=== PATIENT | male | born 1940 | race Caucasian/White ===

== ENCOUNTER 2024-05-30 19:13 | Observation (INO) | payer OTHER, SELFPAY ==
[2024-05-30] VITALS (51 sets, daily range): BP systolic 140–164; BP diastolic 65–88; PULSE 52–66; RESP 0–23; TEMP 36.8–37.5; O2SAT 92–96
--- NOTE | 2024-05-30 19:15 | RT.EKG_ITS ---
APPROVED REPORT Exam: Resting ECG Reason for Exam: Stroke? Patient Location: E HR:61 bpm ECG Measurements Heart Rate 61 AXIS IL 131 P 68 QRSd 90 QRS -40 QT 365 T 16 QTc 369 Conclusion Sinus rhythM 61 left axis no stemi
--- NOTE | 2024-05-30 19:30 | DI.CT_ITS ---
Exam(s) CT HEAD - STROKE PROTOCOL EXAM: CT HEAD - STROKE PROTOCOL CLINICAL HISTORY: ams. TECHNIQUE: Imaging Protocol: Axial computed tomography images with coronal and sagittal reformatted images were created and reviewed COMPARISON: No exams were available for comparison FINDINGS: Ventricles and Extra axial spaces: Normal in size and morphology for the patient's age. Hemorrhage: None. Cerebral parenchyma: No evidence of acute infarct or mass. Mild atrophy consistent with the patient 's age. Moderate patchy signal in the white matter consistent with changes chronic microvascular dis ease. 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 Midline shift: None. Brainstem/Cerebellum: Normal. Calvarium: Normal. Visualized Paranasal sinuses:Clear. Mastoids: Clear. Soft Tissues: Unremarkable. ORBITS: Unremarkable. PITUITARY: Partially empty sella. IMPRESSION: No acute intracranial process. RADIATION DOSE DELIVERED: 851.95mGy.cm Total DLP DATA REPOSITORY: All CT scans at this facility are submitted to the National Radiology Data Registry (NRDR) Dose Index Registry (DIR) with the [employer] ([employer]). RADIATION OPTIMIZATION: All CT scans at this facility use at least one of these dose optimization te chniques: automated exposure control; mA and/or kV adjustment per patient size (includes targeted exa ms where dose is matched to clinical indication); or iterative reconstruction.
--- NOTE | 2024-05-30 19:30 | DI.RAD_ITS ---
Exam(s) XR CHEST 1V IN DI DEPT EXAM: XR CHEST 1V IN DI DEPT CLINICAL HISTORY: ams TECHNIQUE: 2D digital imaging was performed. COMPARISON: No exams were available for comparison FINDINGS: LUNGS: Linear scarring or atelectasis left lower lung field. Mild fibrotic changes. No pleural abno rmality seen. HEART: Normal size. AORTA: Normal diameter. BONES: Unremarkable for age. Soft tissues: Unremarkable. IMPRESSION: Left lower lobe linear scarring or atelectasis. DATA REPOSITORY: RADIATION DOSE DELIVERED:
[2024-05-30 19:57] LABS: Abs Immature Grans 0.02 10^3/uL (0.0-0.06); Absolute Basophil Count 0.03 10^3/uL (0.0-0.2); Absolute Eosinophil Count 0.08 10^3/uL (0.0-0.7); Absolute Lymphocyte Count 1.43 10^3/uL (1.2-3.4); Absolute Neutrophil Count 7.31 10^3/uL (1.2-6.7); Basophils % 0.3 %; Eosinophils % 0.8 %; HCT 48.2 % (40.0-50.0); HGB 15.9 g/dL (13.5-17.5); Immature Grans % 0.2 %; Lymphocytes % 14.1 %; MCH 32.7 pg (27.0-33.0); MCV 99 fL (80-95); MPV 10.7 fL (8.0-11.0); Monocytes % 12.8 %; Neutrophils % 71.8 %; Platelet Count 184 10^3/uL (130-400); RBC 4.86 10^6/uL (4.36-5.78); RDW 12.2 % (11.8-14.1); RDW-SD 44.9 fL; WBC 10.17 10^3/uL (4.4-10.8)
--- NOTE | 2024-05-30 19:57 | DI.VRAD_ITS ---
PROCEDURE INFORMATION: Exam: CT Head Without Contrast Exam date and time: 05/30/2024 7:38 PM Age: 84 years old Clinical indication: Stroke-like symptoms; Altered mental status/memory loss; Additional info: AMS TECHNIQUE: Imaging protocol: Computed tomography of the head without contrast. Radiation optimization: All CT scans at this facility use at least one of these dose optimization techniques: automated exposure control; mA and/or kV adjustment per patient size (includes targeted exams where dose is matched to clinical indication); or iterative reconstruction. Other technique: STROKE PROTOCOL was implemented. COMPARISON: No relevant prior studies available. FINDINGS: Brain: Mild cerebral atrophy. Mild periventricular small-vessel ischemic changes. No acute hemorrhage. Cerebral ventricles: No ventriculomegaly. Paranasal sinuses: Visualized sinuses are unremarkable. No fluid levels. Mastoid air cells: Visualized mastoid air cells are well aerated. Bones: Unremarkable. No acute fracture. Soft tissues: Unremarkable. IMPRESSION: 1. No acute intracranial abnormalities. 2. Mild cerebral atrophy. ASSESSMENT: ASPECTS ([place] Stroke Program Early CT Score) is 10. Dictated and Authenticated by: Jacky Hansen MD. Orderin Marshall Bartlett MD
--- NOTE | 2024-05-30 19:57 | DI.VRAD_ITS ---
PROCEDURE INFORMATION: Exam: XR Chest Exam date and time: 05/30/2024 7:42 PM Age: 84 years old Clinical indication: Other: AMS TECHNIQUE: Imaging protocol: Radiologic exam of the chest. Views: 1 view. COMPARISON: No relevant prior studies available. FINDINGS: Lungs: Left lower lobe subsegmental atelectatic changes. Pleural spaces: Unremarkable. No pleural effusion. No pneumothorax. Heart/Mediastinum: Unremarkable. No cardiomegaly. Bones/joints: Unremarkable. IMPRESSION: Left lower lobe subsegmental atelectatic changes. Dictated and Authenticated by: Jacky Hansen MD. Orderin Marshall Bartlett MD
[2024-05-30 20:09] LABS: INR 1.1 (0.9-1.1); Prothrombin Time 11.3 sec (9.1-11.1)
[2024-05-30] MEDS: CEFEPIME 1 GM in Normal Saline 50 ML IVPB (20:13)
[2024-05-30 20:15] LABS: Ammonia < 10 umol/L (11-32)
[2024-05-30 20:56] LABS: ALT 10 U/L (16-63); AST 20 U/L (15-37); Albumin 3.8 g/dL (3.4-5.0); Alkaline Phosphatase 95 U/L (46-116); Anion Gap 4.7 mmol/L (3-11); BUN 17 mg/dL (7-18); Bilirubin, Total 1.5 mg/dL (0.2-1.0); CO2 33.3 mmol/L (21.0-32.0); CREATININE 1.2 mg/dL (0.70-1.30); Calcium 9.6 mg/dL (8.5-10.1); Chloride 100 mmol/L (98-107); Glucose 92 mg/dL (74-106); Magnesium 1.9 mg/dL; Potassium 3.4 mmol/L (3.5-5.1); Sodium 138 mmol/L (136-145); TSH (W/Ref FT4) 0.65 uIU/mL (0.36-3.74); Total Protein 7.4 g/dL (6.4-8.2); Troponin I 13 ng/L (<or=76)
[2024-05-30 20:57] LABS: ETHANOL BLOOD < 3.0 mg/dL (<10)
[2024-05-30 21:01] LABS: Troponin I 11 ng/L (<or=76)
[2024-05-30] MEDS: VANCOMYCIN 1,500 MG in Normal Saline 250 ML 166.6666 MG IVPB (21:03)
[2024-05-30 22:19] LABS: Bilirubin Negative (Negative); Blood Trace-intact (Negative); Clarity Clear (Clear); Glucose Negative (Negative); Ketones 15 mg/dL (Negative); Leukocyte Esterase Negative (Negative); Nitrite Negative (Negative); Urobilinogen 0.2 mg/dL (Up to 0.2)
[2024-05-30 22:28] LABS: Bacteria Rare HPF (Negative); C & S Indicated? No; Casts Negative LPF (Negative); Crystals Rare Calcium Oxalate HPF (Negative); Epithelial Cells Rare HPF (Negative); Mucus Moderate (Negative); WBC 0-2 HPF (0-5)
[2024-05-30 22:51] LABS: *AMPHETAMINES SCREEN URINE Negative (Negative); *BARBITURATES SCREEN URINE Negative (Negative); *BENZODIAZEPINES SCREEN URINE Negative (Negative); Cannabinoids THC Negative (Negative); Cocaine Screen,Urine Negative (Negative); METHADONE URINE SCREEN Negative (Negative); OPIATES URINE SCREEN Negative (Negative)
--- NOTE | 2024-05-30 22:51 | W.ED.GENAD ---
Discharge Plan Disposition Patient Disposition: Admit to [facility] Condition: Fair Discharge Details Chief Complaint: AMS/LOC Clinical Impression: Delirium Primary Care Provider: Unknown,Unknown ED Provider: Rodolfo Olivares Home Meds and New Rx's Prescriptions: No Action timolol [Betimol] 0.5 % drops 1 drp ophthalmic (eye) DAILY Rx Instructions: 1 drop to both eyes every morning carbidopa-levodopa 25-100 mg tablet 1 tab PO TID latanoprost [Xalatan] 0.005 % drops 1 drp ophthalmic (eye) QPM Rx Instructions: 1 drop to both eyes at bedtime zinc gluconate PO DAILY ferrous sulfate PO DAILY folic acid PO DAILY cyanocobalamin (vitamin B-12) PO DAILY PRN potassium chloride PO DAILY HPI General Date/Time Provider Initiated Documentation: 05/30/24 19:31. Limitations to Documentation: altered mental status. Information obtained by: family. HPI Narrative: 84-year-old gentleman with past medical history of Parkinson's disease presents for evaluation of altered mental status. reports onset of symptoms earlier today. She states that over the weekend he was hospitalized at [facility] for abdominal pain and vomiting. She states at that time he was being evaluated for possible gallbladder infection. She says that he had imaging and lab work and was determined to not have an acute infection and was discharged late last night. The reports that he came home from the hospital and went to sleep. She reports that he slept until about noon today and it required full assistance to get to the bathroom, he attempted to pee on the floor but she had to help him go to the bathroom. She reports that she normally does not have to help and assist him in this way. She returned him to bed and he continued to sleep for another several hours. She states that around 5:00 she went to wake him up and he seemed to be confused, his pants were down and he peed on the floor. She handed him some crackers and he tried to drink them instead of eat them. She states that he has had a diagnosis of Parkinson's for many years and never had any issues with dementia or altered mental status. He has never had any behavioral problems. He has not had any known fever or any additional vomiting since discharge Related Data Home Medications ?Medication ?Instructions ?Recorded ?Confirmed carbidopa 25 mg-levodopa 100 mg 1 tab PO TID 05/30/24 05/30/24 tablet cyanocobalamin (vitamin B-12) PO DAILY PRN 05/30/24 ferrous sulfate PO DAILY 05/30/24 folic acid PO DAILY 05/30/24 latanoprost 0.005 % eye drops 1 drp ophthalmic (eye) QPM 05/30/24 05/30/24 (Xalatan) potassium chloride PO DAILY 05/30/24 timolol 0.5 % eye drops (Betimol) 1 drp ophthalmic (eye) DAILY 05/30/24 05/30/24 zinc gluconate PO DAILY 05/30/24 Allergies Allergy/AdvReac Type Severity Reaction Status Date / Time No Known Allergies Allergy Unverified 05/30/24 19:28 General Stated Complaint: AMS/LOC EYAL: 2 Exam Narrative Exam Narrative: Review of Systems: All systems reviewed & are unremarkable except as noted in HPI and below Well-developed, no acute distress NCAT RRR no murmu Unlabored respiratory effort, CTAB Nondistended abdomen soft non tender no focal neurologic deficits, AOx3, slow responses, no focal deficits, cranial nerves intact flat affect, slow movements Course Vital Signs Vital signs: Vital Signs Temperature 37.5 C 05/30/24 19:17 Pulse 60 05/30/24 19:17 Respiratory Rate 18 05/30/24 19:17 Blood Pressure 157/82 H 05/30/24 19:17 Pulse Oximetry 95 05/30/24 19:17 Temperature 36.8 C 05/30/24 22:01 Temperature Source Oral 05/30/24 19:17 Pulse 57 L 05/30/24 22:01 Pulse 58 L 05/30/24 22:05 Respiratory Rate 11 L 05/30/24 22:05 Respiratory Effort Normal 05/30/24 19:23 Blood Pressure 159/83 H 05/30/24 22:01 Blood Pressure Mean 105 05/30/24 22:01 Pulse Oximetry 93 05/30/24 21:50 Oxygen Delivery Method Room Air 05/30/24 19:23 Pain Level 0 05/30/24 19:17 Lab/Test Results Lab/Test Results: 05/30/24 20:30 Blood Blood Culture - Pending 05/30/24 20:07 Blood Blood Culture - Pending Laboratory Tests Range/Units 05/30/24 05/30/24 05/30/24 18:57 19:31 20:36 WBC (4.4-10.8) 10^3/uL 10.17 RBC (4.36-5.78) 10^6/uL 4.86 Hgb (13.5-17.5) g/dL 15.9 Hct (40.0-50.0) % 48.2 MCV (80-95) fL 99 H MCH (27.0-33.0) pg 32.7 MCHC (32.0-36.0) % 33.0 RDW (11.8-14.1) % 12.2 Plt Count (130-400) 10^3/uL 184 MPV (8.0-11.0) fL 10.7 Immature Gran % % 0.2 Neutrophils % % 71.8 Lymphocytes % % 14.1 Monocytes % % 12.8 Eosinophils % % 0.8 Basophils % % 0.3 Nucleated RBC % (0.0-0.3) % 0.0 Absolute Neutrophils (1.2-6.7) 10^3/uL 7.31 H Absolute Lymphocytes (1.2-3.4) 10^3/uL 1.43 Absolute Monocytes (0.1-0.8) 10^3/uL 1.30 H Absolute Eosinophils (0.0-0.7) 10^3/uL 0.08 Absolute Basophils (0.0-0.2) 10^3/uL 0.03 PT (9.1-11.1) sec 11.3 H INR (0.9-1.1) 1.1 Sodium (136-145) mmol/L 138 Potassium (3.5-5.1) mmol/L 3.4 L Chloride (98-107) mmol/L 100 Carbon Dioxide (21.0-32.0) mmol/L 33.3 H Anion Gap (3-11) mmol/L 4.7 BUN (7-18) mg/dL 17 Creatinine (0.70-1.30) mg/dL 1.2 Est GFR (CKD-EPI 2020) (mL/min/1.73m2) 60.00 Glucose (74-106) mg/dL 92 Calcium (8.5-10.1) mg/dL 9.6 Magnesium mg/dL 1.9 Total Bilirubin (0.2-1.0) mg/dL 1.5 H AST (15-37) U/L 20 ALT (16-63) U/L 10 L Alkaline Phosphatase (46-116) U/L 95 Ammonia (11-32) umol/L < 10 L Troponin I (<or=76) ng/L 13 11 Total Protein (6.4-8.2) g/dL 7.4 Albumin (3.4-5.0) g/dL 3.8 TSH (0.36-3.74) uIU/mL 0.65 Urine Color (Yellow) Urine Clarity (Clear) Urine pH (5-8) Ur Specific [place] (1.005-1.025) Urine Protein (Neg-Trace) mg/dL Urine Ketones (Negative) mg/dL Urine Blood (Negative) Urine Nitrite (Negative) Urine Bilirubin (Negative) Urine Urobilinogen (Up to 0.2) mg/dL Ur Leukocyte Esterase (Negative) Urine RBC (0-2) HPF Urine WBC (0-5) HPF Ur Epithelial Cells (Negative) HPF Urine Crystals (Negative) HPF Urine Bacteria (Negative) HPF Urine Casts (Negative) LPF Urine Mucus (Negative) Ur Culture Indicated? Urine Glucose (Negative) mg/dL Ethyl Alcohol (<10) mg/dL < 3.0 Range/Units 05/30/24 05/30/24 22:05 22:31 WBC (4.4-10.8) 10^3/uL RBC (4.36-5.78) 10^6/uL Hgb (13.5-17.5) g/dL Hct (40.0-50.0) % MCV (80-95) fL MCH (27.0-33.0) pg MCHC (32.0-36.0) % RDW (11.8-14.1) % Plt Count (130-400) 10^3/uL MPV (8.0-11.0) fL Immature Gran % % Neutrophils % % Lymphocytes % % Monocytes % % Eosinophils % % Basophils % % Nucleated RBC % (0.0-0.3) % Absolute Neutrophils (1.2-6.7) 10^3/uL Absolute Lymphocytes (1.2-3.4) 10^3/uL Absolute Monocytes (0.1-0.8) 10^3/uL Absolute Eosinophils (0.0-0.7) 10^3/uL Absolute Basophils (0.0-0.2) 10^3/uL PT (9.1-11.1) sec INR (0.9-1.1) Sodium (136-145) mmol/L Potassium (3.5-5.1) mmol/L Chloride (98-107) mmol/L Carbon Dioxide (21.0-32.0) mmol/L Anion Gap (3-11) mmol/L BUN (7-18) mg/dL Creatinine (0.70-1.30) mg/dL Est GFR (CKD-EPI 2020) (mL/min/1.73m2) Glucose (74-106) mg/dL Calcium (8.5-10.1) mg/dL Magnesium mg/dL Total Bilirubin (0.2-1.0) mg/dL AST (15-37) U/L ALT (16-63) U/L Alkaline Phosphatase (46-116) U/L Ammonia (11-32) umol/L Troponin I (<or=76) ng/L Cancelled Total Protein (6.4-8.2) g/dL Albumin (3.4-5.0) g/dL TSH (0.36-3.74) uIU/mL Urine Color (Yellow) Yellow Urine Clarity (Clear) Clear Urine pH (5-8) 7.0 Ur Specific [place] (1.005-1.025) 1.020 Urine Protein (Neg-Trace) mg/dL Trace Urine Ketones (Negative) mg/dL 15 H Urine Blood (Negative) Trace-intact H Urine Nitrite (Negative) Negative Urine Bilirubin (Negative) Negative Urine Urobilinogen (Up to 0.2) mg/dL 0.2 Ur Leukocyte Esterase (Negative) Negative Urine RBC (0-2) HPF 3-5 H Urine WBC (0-5) HPF 0-2 Ur Epithelial Cells (Negative) HPF Rare Urine Crystals (Negative) HPF Rare Calcium Oxalate Urine Bacteria (Negative) HPF Rare Urine Casts (Negative) LPF Negative Urine Mucus (Negative) Moderate Ur Culture Indicated? No Urine Glucose (Negative) mg/dL Negative Ethyl Alcohol (<10) mg/dL Medical Decision Making Emergent evaluation of altered mental status. is unclear on last known normal since he was hospitalized and basically has been asleep since yesterday. Seems like he has been having some altered symptoms throughout the day without any focal neurologic deficit. He does have a history of Parkinson's, but has never had any behavioral issues or symptoms of parkinsonian dementia. On arrival his temperature was slightly elevated, and had a recent hospital stay concerning for vomiting and abdominal pain. He has no abdominal pain on examination today.. And I do not suspect a stroke as he has no acute neurologic deficits. CT imaging did not reveal any acute etiology. Chest x-ray was concerning for some abnormality in the left lower lobe, this could be atelectasis versus acute pneumonia, the patient was cultured and received broad-spectrum antibiotics. If he does have pneumonia, at this time he is not displaying symptoms or signs concerning for hypoxia. But he did have recent hospital stay which would put him at much higher risk. I suspect delirium that may likely have been exacerbated by his recent hospital stay and recent GI illness. At this time recommend hospitalization for further evaluation and monitoring. [facility]. Quality:SDOH Health Related Social Needs: No Data to Display PFSH All Active Problems (Updated 05/30/24 @ 23:03 by Rodolfo Olivares MD) Delirium (Acute) Social History Smoking/Tobacco Use Status: Never Smoking risk assessment performed?: Yes Alcohol Intake: never Substance use type: does not use
[2024-05-30 22:52] LABS: Tricyclic Antidepressants Negative (Negative)
--- NOTE | 2024-05-30 23:16 | W.PM.HP.N ---
Date of service: 05/30/24 Time of Service: 23:16 Assessment and Plan Assessment and plan (1) Delirium: Start date: 05/30/24 Status: Acute Assessment and plan: This is an 84-year-old gentleman who had acute delirium at home different than his baseline with chronic Parkinson disease. He has had a recent hospitalization for cholecystitis and was found to have cholelithiasis with contracted gallbladder. He is not having abdominal pain presently and was treated for constipation with a large stool burden found during that hospitalization. Because of his acute delirium being possible infectious delirium though he did not have a WBC elevation or fever, he was noted on IV antibiotic therapy. He has had a recent hospitalization and was a left lower lobe infiltrate this could be hospital-acquired if progressing. Because of his acute confusional state and Parkinson disease with gait abnormality worsening recently, patient will have MRI of the brain to follow-up with CT of the brain. CT of the brain did show atrophy but no focal infarcts. Also he will have an echocardiogram with bubble study. He is a full code. (2) Parkinson's disease: Status: Chronic Assessment and plan: Continue Sinemet. PT evaluation. (3) Hypokalemia: Status: Chronic Assessment and plan: Chronic with patient on oral potassium which will be continued. Trend labs. (4) Glaucoma: Status: Chronic Assessment and plan: Continue outpatient eyedrops. Patient will follow-up at the [facility] for this problem. (5) Cholelithiasis without cholecystitis: Start date: 05/29/24 Status: Acute Assessment and plan: [facility]. This does not appear to be an acute problem. (6) Constipation: Start date: 05/29/24 Status: Acute Assessment and plan: Continue cathartics to assure clearing of his colon which was causing some right abdominal pain. This has resolved. General surgery consultation for this problem as well as cholelithiasis through the [facility]. History of Present Illness History of Present Illness Chief Complaint: Acute confused state with behavior at home. Narrative: This is an 84-year-old male patient who usually goes to [facility] but was recently hospitalized at [facility] for acute cholecystitis with cholelithiasis found on CT with a contracted gallbladder. This was found on CT of the abdomen and pelvis and ultrasound did not show any pericholecystic fluid. General surgery thought that the patient could have outpatient general surgery consultation and his abdominal pain did improve after relief of some constipation with the burden of stool mostly on the right side of the colon. At home he slept for 12 hours and will awaken was more confused than usual trying to drink crackers rather than eating down and letting his pants down and urinating on the floor rather than going to the bathroom. His did try to guide him to the bathroom. He did not have any falls. He does have a history of Parkinson disease and has been using a walker intermittently but more recently. He has had problems with his gait recently. He has no history of dementia with his Parkinson's disease. He does not remember any imaging of his head. He reported to the ED because of this confusion and has slightly improved but persisted with mild dilution in the ED according to his not return to baseline. Imaging did reveal possible left lower lobe infiltrate the patient did not have any fever or elevated WBC. He did not have any cough. He was initiated on IV vancomycin and cefepime because of his acute change in mental status with being imaging of infiltrate. He was also recently in the hospital. Patient had no further information and I did review the discharge summary from [facility]. Patient will have imaging of his head in the morning with CT of the head showing atrophy but no focal findings because of his possible infectious encephalopathy associated with the delirium. Also he has been having advancing gait problems with his Parkinson disease. Echocardiogram with bubble study would also be performed. He is a full code. Review of Systems Narrative: 13 point review of systems otherwise unrevealing or unremarkable per with the ED physician interviewing. [facility] All Active Problems (Updated 05/31/24 @ 06:37 by Thuan Rodriguez) Constipation (Acute) Cholelithiasis without cholecystitis (Acute) Glaucoma (Chronic) Hypokalemia (Chronic) Parkinson's disease (Chronic) Delirium (Acute) Social History Smoking/Tobacco Use Status: Never Smoking risk assessment performed?: Yes Alcohol Intake: never Substance use type: does not use Meds Allergies and Home Medications Allergies Allergy/AdvReac Type Severity Reaction Status Date / Time No Known Allergies Allergy Unverified 05/30/24 19:28 Home Medications ?Medication ?Instructions ?Recorded ?Confirmed ?Type carbidopa 25 mg-levodopa 100 mg 1 tab PO TID 05/30/24 05/30/24 History tablet cyanocobalamin (vitamin B-12) PO DAILY PRN 05/30/24 History ferrous sulfate PO DAILY 05/30/24 History folic acid PO DAILY 05/30/24 History latanoprost 0.005 % eye drops 1 drp ophthalmic (eye) QPM 05/30/24 05/30/24 History (Xalatan) potassium chloride PO DAILY 05/30/24 History timolol 0.5 % eye drops (Betimol) 1 drp ophthalmic (eye) DAILY 05/30/24 05/30/24 History zinc gluconate PO DAILY 05/30/24 History Exam Narrative Exam Narrative: General: Patient appears appropriate for age, he is thin but not cachectic lying comfortably in bed in no acute distress. Is alert and oriented at least to person and place. HEENT: Normocephalic, eyes with pupils equal and reactive light symmetrically, extraocular movement intact and sclera anicteric. Oropharynx with dry mucosa and fair dentition. Neck: Supple without JVD and no auscultated bruits. Back: Stooped posture without CVA tenderness. Lungs: Fair aeration with fine to moderate inspiratory crackles both bases more in the left than right. No expiratory wheeze. Bronchovesicular breath sounds diffusely. Heart: Bradycardic rate with normal rhythm. No appreciable murmur or gallop. Abdomen: Scaphoid contour, soft and nontender to palpation with no palpable hepatosplenomegaly. No Garza sign. Bowel sounds positive all quadrants. Genitalia/rectal: Exam deferred. Extremities: Without clubbing, cyanosis or pitting edema. Slightly atrophic musculature over the extremities with fair capillary refill. No joint swelling. Neuro: Cranial nerves II to XII gross intact, no focalizing motor deficits. Increased tone but no cogwheel rigidity to exam. No resting tremor. Psych: Flattened affect with normal mood. Remote memory intact. Recent memory less intact so patient can admittedly answer questions. Results Imaging Imaging Studies: Exam: XR Chest Exam date and time: 05/30/2024 7:42 PM Age: 84 years old Clinical indication: Other: AMS TECHNIQUE: Imaging protocol: Radiologic exam of the chest. Views: 1 view. COMPARISON: No relevant prior studies available. FINDINGS: Lungs: Left lower lobe subsegmental atelectatic changes. Pleural spaces: Unremarkable. No pleural effusion. No pneumothorax. Heart/Mediastinum: Unremarkable. No cardiomegaly. Bones/joints: Unremarkable. IMPRESSION: Left lower lobe subsegmental atelectatic changes. Exam: CT Head Without Contrast Exam date and time: 05/30/2024 7:38 PM Age: 84 years old Clinical indication: Stroke-like symptoms; Altered mental status/memory loss; Additional info: AMS TECHNIQUE: Imaging protocol: Computed tomography of the head without contrast. Radiation optimization: All CT scans at this facility use at least one of these dose optimization techniques: automated exposure control; mA and/or kV adjustment per patient size (includes targeted exams where dose is matched to clinical indication); or iterative reconstruction. Other technique: STROKE PROTOCOL was implemented. COMPARISON: No relevant prior studies available. FINDINGS: Brain: Mild cerebral atrophy. Mild periventricular small-vessel ischemic changes. No acute hemorrhage. Cerebral ventricles: No ventriculomegaly. Paranasal sinuses: Visualized sinuses are unremarkable. No fluid levels. Mastoid air cells: Visualized mastoid air cells are well aerated. Bones: Unremarkable. No acute fracture. Soft tissues: Unremarkable. IMPRESSION: 1. No acute intracranial abnormalities. 2. Mild cerebral atrophy. Labs 05/31/24 05:25 05/31/24 05:25 Labs: Laboratory Results - last 24 hr 05/30/24 05/30/24 05/30/24 18:57 19:31 20:36 WBC 10.17 RBC 4.86 Hgb 15.9 Hct 48.2 MCV 99 H MCH 32.7 MCHC 33.0 RDW 12.2 Plt Count 184 MPV 10.7 Immature Gran % 0.2 Neutrophils % 71.8 Lymphocytes % 14.1 Monocytes % 12.8 Eosinophils % 0.8 Basophils % 0.3 Nucleated RBC % 0.0 Absolute Neutrophils 7.31 H Absolute Lymphocytes 1.43 Absolute Monocytes 1.30 H Absolute Eosinophils 0.08 Absolute Basophils 0.03 PT 11.3 H INR 1.1 Sodium 138 Potassium 3.4 L Chloride 100 Carbon Dioxide 33.3 H Anion Gap 4.7 BUN 17 Creatinine 1.2 Est GFR (CKD-EPI 2020) 60.00 Glucose 92 Calcium 9.6 Magnesium 1.9 Total Bilirubin 1.5 H AST 20 ALT 10 L Alkaline Phosphatase 95 Ammonia < 10 L Troponin I 13 11 Total Protein 7.4 Albumin 3.8 TSH 0.65 Urine Color Urine Clarity Urine pH Ur Specific [place] Urine Protein Urine Ketones Urine Blood Urine Nitrite Urine Bilirubin Urine Urobilinogen Ur Leukocyte Esterase Urine RBC Urine WBC Ur Epithelial Cells Urine Crystals Urine Bacteria Urine Casts Urine Mucus Ur Culture Indicated? Urine Glucose Urine Opiates Screen Urine Methadone Screen Ur Barbiturates Screen Ur Tricyclics Screen Ur Amphetamines Screen U Benzodiazepines Scrn Urine Cocaine Screen Ur THC Screen Ethyl Alcohol < 3.0 05/30/24 05/30/24 22:05 22:31 WBC RBC Hgb Hct MCV MCH MCHC RDW Plt Count MPV Immature Gran % Neutrophils % Lymphocytes % Monocytes % Eosinophils % Basophils % Nucleated RBC % Absolute Neutrophils Absolute Lymphocytes Absolute Monocytes Absolute Eosinophils Absolute Basophils PT INR Sodium Potassium Chloride Carbon Dioxide Anion Gap BUN Creatinine Est GFR (CKD-EPI 2020) Glucose Calcium Magnesium Total Bilirubin AST ALT Alkaline Phosphatase Ammonia Troponin I Cancelled Total Protein Albumin TSH Urine Color Yellow Urine Clarity Clear Urine pH 7.0 Ur Specific [place] 1.020 Urine Protein Trace Urine Ketones 15 H Urine Blood Trace-intact H Urine Nitrite Negative Urine Bilirubin Negative Urine Urobilinogen 0.2 Ur Leukocyte Esterase Negative Urine RBC 3-5 H Urine WBC 0-2 Ur Epithelial Cells Rare Urine Crystals Rare Calcium Oxalate Urine Bacteria Rare Urine Casts Negative Urine Mucus Moderate Ur Culture Indicated? No Urine Glucose Negative Urine Opiates Screen Negative Urine Methadone Screen Negative Ur Barbiturates Screen Negative Ur Tricyclics Screen Negative Ur Amphetamines Screen Negative U Benzodiazepines Scrn Negative Urine Cocaine Screen Negative Ur THC Screen Negative Ethyl Alcohol Last Vital Signs Temp 36.8 C 05/30/24 22:01 Pulse 55 L 05/30/24 23:01 Resp 10 L 05/30/24 23:01 BP 145/67 H 05/30/24 23:01 Pulse Ox 95 05/30/24 23:01 Time Spent Time spent with Patient: >75 minutes Time was spent: preparing to see the patient(eg.review tests), obtaining and/or reviewing separately otained hiistory, ordering medications,tests, procedures, indepentently interpreting results, care coordination and other (Reviewed recent hospitalization records.)
[2024-05-31] VITALS (43 sets, daily range): BP systolic 99–148; BP diastolic 64–88; PULSE 44–65; RESP 2–28; TEMP 36.4–37.7; O2SAT 89–98
[2024-05-31 00:29] LABS: COVID-19 PCR Negative (Negative); Influenza A PCR Negative (Negative); Influenza B PCR Negative (Negative); RSV PCR Negative (Negative)
[2024-05-31 00:33] LABS: Source Nasopharynx
--- NOTE | 2024-05-31 00:41 | W.PC.ACHO ---
Registration Status: Primary Language: Preferred Language: ED Information & Data Chief Complaint AMS/LOC 05/30/24 22:53 Triage Note PT has had weakness that 05/30/24 19:17 started this morning at 1230 . PT had some confusion also . PT thought his pants were down and urinated on himself . he was handed crackers and she tried to drink them. PT was DC from [facility] last night Most Recent Vital Signs Temperature 36.8 C 05/30/24 22:01 Temperature Source Oral 05/30/24 19:17 Pulse 56 L 05/31/24 00:16 Pulse 56 L 05/31/24 00:16 Respiratory Rate 13 05/31/24 00:16 Respiratory Effort Normal 05/30/24 19:23 Blood Pressure 130/86 05/31/24 00:16 Blood Pressure Mean 99 05/31/24 00:16 Pulse Oximetry 93 05/30/24 23:20 Oxygen Delivery Method Room Air 05/30/24 19:23 Pain Level 0 05/30/24 19:17 Allergies No Known Allergies Allergy (Unverified 05/30/24 19:28) IV IV Catheter Type [Right Saline Lock Antecubital] IV Catheter Gauge [Right 18 Antecubital] Diagnostics 05/30/24 05/30/24 05/30/24 Range/Units 23:47 22:31 22:05 WBC (4.4-10.8) 10^3/uL RBC (4.36-5.78) 10^6/uL Hgb (13.5-17.5) g/dL Hct (40.0-50.0) % MCV (80-95) fL MCH (27.0-33.0) pg MCHC (32.0-36.0) % RDW (11.8-14.1) % Plt Count (130-400) 10^3/uL MPV (8.0-11.0) fL Immature Gran % % Neutrophils % % Lymphocytes % % Monocytes % % Eosinophils % % Basophils % % Nucleated RBC % (0.0-0.3) % Absolute Neutrophils (1.2-6.7) 10^3/uL Absolute Lymphocytes (1.2-3.4) 10^3/uL Absolute Monocytes (0.1-0.8) 10^3/uL Absolute Eosinophils (0.0-0.7) 10^3/uL Absolute Basophils (0.0-0.2) 10^3/uL PT (9.1-11.1) sec INR (0.9-1.1) Sodium (136-145) mmol/L Potassium (3.5-5.1) mmol/L Chloride (98-107) mmol/L Carbon Dioxide (21.0-32.0) mmol/L Anion Gap (3-11) mmol/L BUN (7-18) mg/dL Creatinine (0.70-1.30) mg/dL Est GFR (CKD-EPI 2020) (mL/min/1.73m2) Glucose (74-106) mg/dL Calcium (8.5-10.1) mg/dL Magnesium mg/dL Total Bilirubin (0.2-1.0) mg/dL AST (15-37) U/L ALT (16-63) U/L Alkaline Phosphatase (46-116) U/L Ammonia (11-32) umol/L Troponin I Cancelled (<or=76) ng/L Total Protein (6.4-8.2) g/dL Albumin (3.4-5.0) g/dL TSH (0.36-3.74) uIU/mL Urine Color Yellow (Yellow) Urine Clarity Clear (Clear) Urine pH 7.0 (5-8) Ur Specific [place] 1.020 (1.005-1.025) Urine Protein Trace (Neg-Trace) mg/dL Urine Ketones 15 H (Negative) mg/dL Urine Blood Trace-intact H (Negative) Urine Nitrite Negative (Negative) Urine Bilirubin Negative (Negative) Urine Urobilinogen 0.2 (Up to 0.2) mg/dL Ur Leukocyte Esterase Negative (Negative) Urine RBC 3-5 H (0-2) HPF Urine WBC 0-2 (0-5) HPF Ur Epithelial Cells Rare (Negative) HPF Urine Crystals Rare Calcium Oxalate (Negative) HPF Urine Bacteria Rare (Negative) HPF Urine Casts Negative (Negative) LPF Urine Mucus Moderate (Negative) Ur Culture Indicated? No Urine Glucose Negative (Negative) mg/dL Urine Opiates Screen Negative (Negative) Urine Methadone Screen Negative (Negative) Ur Barbiturates Screen Negative (Negative) Ur Tricyclics Screen Negative (Negative) Ur Amphetamines Screen Negative (Negative) U Benzodiazepines Scrn Negative (Negative) Urine Cocaine Screen Negative (Negative) Ur THC Screen Negative (Negative) Ethyl Alcohol (<10) mg/dL COVID-19 Source Nasopharynx SARS-CoV-2 (PCR) Negative (Negative) Influenza Type A (PCR) Negative (Negative) Influenza Type B (PCR) Negative (Negative) RSV (PCR) Negative (Negative) 05/30/24 05/30/24 05/30/24 Range/Units 20:36 19:31 18:57 WBC 10.17 (4.4-10.8) 10^3/uL RBC 4.86 (4.36-5.78) 10^6/uL Hgb 15.9 (13.5-17.5) g/dL Hct 48.2 (40.0-50.0) % MCV 99 H (80-95) fL MCH 32.7 (27.0-33.0) pg MCHC 33.0 (32.0-36.0) % RDW 12.2 (11.8-14.1) % Plt Count 184 (130-400) 10^3/uL MPV 10.7 (8.0-11.0) fL Immature Gran % 0.2 % Neutrophils % 71.8 % Lymphocytes % 14.1 % Monocytes % 12.8 % Eosinophils % 0.8 % Basophils % 0.3 % Nucleated RBC % 0.0 (0.0-0.3) % Absolute Neutrophils 7.31 H (1.2-6.7) 10^3/uL Absolute Lymphocytes 1.43 (1.2-3.4) 10^3/uL Absolute Monocytes 1.30 H (0.1-0.8) 10^3/uL Absolute Eosinophils 0.08 (0.0-0.7) 10^3/uL Absolute Basophils 0.03 (0.0-0.2) 10^3/uL PT 11.3 H (9.1-11.1) sec INR 1.1 (0.9-1.1) Sodium 138 (136-145) mmol/L Potassium 3.4 L (3.5-5.1) mmol/L Chloride 100 (98-107) mmol/L Carbon Dioxide 33.3 H (21.0-32.0) mmol/L Anion Gap 4.7 (3-11) mmol/L BUN 17 (7-18) mg/dL Creatinine 1.2 (0.70-1.30) mg/dL Est GFR (CKD-EPI 2020) 60.00 (mL/min/1.73m2) Glucose 92 (74-106) mg/dL Calcium 9.6 (8.5-10.1) mg/dL Magnesium 1.9 mg/dL Total Bilirubin 1.5 H (0.2-1.0) mg/dL AST 20 (15-37) U/L ALT 10 L (16-63) U/L Alkaline Phosphatase 95 (46-116) U/L Ammonia < 10 L (11-32) umol/L Troponin I 11 13 (<or=76) ng/L Total Protein 7.4 (6.4-8.2) g/dL Albumin 3.8 (3.4-5.0) g/dL TSH 0.65 (0.36-3.74) uIU/mL Urine Color (Yellow) Urine Clarity (Clear) Urine pH (5-8) Ur Specific [place] (1.005-1.025) Urine Protein (Neg-Trace) mg/dL Urine Ketones (Negative) mg/dL Urine Blood (Negative) Urine Nitrite (Negative) Urine Bilirubin (Negative) Urine Urobilinogen (Up to 0.2) mg/dL Ur Leukocyte Esterase (Negative) Urine RBC (0-2) HPF Urine WBC (0-5) HPF Ur Epithelial Cells (Negative) HPF Urine Crystals (Negative) HPF Urine Bacteria (Negative) HPF Urine Casts (Negative) LPF Urine Mucus (Negative) Ur Culture Indicated? Urine Glucose (Negative) mg/dL Urine Opiates Screen (Negative) Urine Methadone Screen (Negative) Ur Barbiturates Screen (Negative) Ur Tricyclics Screen (Negative) Ur Amphetamines Screen (Negative) U Benzodiazepines Scrn (Negative) Urine Cocaine Screen (Negative) Ur THC Screen (Negative) Ethyl Alcohol < 3.0 (<10) mg/dL COVID-19 Source SARS-CoV-2 (PCR) (Negative) Influenza Type A (PCR) (Negative) Influenza Type B (PCR) (Negative) RSV (PCR) (Negative) 05/30/24 20:30 Blood Culture - Pending Blood 05/30/24 20:07 Blood Culture - Pending Blood Intake and Output - 24 Hour Total 05/30/24 19:13 thru 05/30/24 22:34 Intake Total 300 Balance 300 Weight 66.8 kg Intake: IV 300 Falls Risk Assessment History of Falls No History 05/30/24 19:23 Contributing Factors No Factors 05/30/24 19:23 Ambulatory Aids Uses ambulatory device 05/30/24 19:23 Tubes/Lines None 05/30/24 19:23 Gait Evaluation W/no contributing factors 05/30/24 19:23 Cognition Cognitive impairment 05/30/24 19:23 Fall Total Score 40 05/30/24 19:23 Level of Risk Moderate Risk 05/30/24 19:23 Problems (Last Reviewed 05/30/24 @ 23:17 by Thuan Rodriguez) Parkinson's disease (Chronic) Delirium (Acute) v v v v v v v v v Sending and/or Receiving Nurses: Please use comment section below to note any information pertinent to the patient hand-off not included above. Information / Comments: no questions after report Report received from: Luís VALDES
[2024-05-31] MEDS: Potassium Chloride 20 MEQ TABCR PO (02:24)
[2024-05-31] MEDS: Atorvastatin 40 MG TAB 80 MG PO ×2 (02:24→19:52)
[2024-05-31] MEDS: Aspirin 325 MG TAB PO (02:25)
[2024-05-31] MEDS: CEFEPIME 1 GM in Normal Saline 50 ML IVPB (03:53)
[2024-05-31] MEDS: Normal Saline Flush 10 ML SYR IVP ×3 (05:31→19:52)
[2024-05-31 05:41] LABS: HCT 43.4 % (40.0-50.0); HGB 14.4 g/dL (13.5-17.5); MCH 32.7 pg (27.0-33.0); MCHC 33.2 % (32.0-36.0); MCV 98 fL (80-95); MPV 10.3 fL (8.0-11.0); Platelet Count 155 10^3/uL (130-400); RBC 4.41 10^6/uL (4.36-5.78); RDW-SD 43.8 fL
[2024-05-31 06:05] LABS: INR 1.1 (0.9-1.1); Prothrombin Time 11.4 sec (9.1-11.1)
[2024-05-31 06:13] LABS: ALT 23 U/L (16-63); AST 19 U/L (15-37); Alkaline Phosphatase 78 U/L (46-116); Anion Gap 7.2 mmol/L (3-11); BUN 18 mg/dL (7-18); Bilirubin, Total 1.6 mg/dL (0.2-1.0); CO2 29.8 mmol/L (21.0-32.0); CREATININE 1.1 mg/dL (0.70-1.30); Calcium 8.7 mg/dL (8.5-10.1); Chloride 101 mmol/L (98-107); Estimated GFR 66.61 (mL/min/1.73m2); Glucose 94 mg/dL (74-106); Magnesium 1.8 mg/dL; Sodium 138 mmol/L (136-145); Total Protein 6.1 g/dL (6.4-8.2)
--- NOTE | 2024-05-31 08:00 | DI.MRI_ITS ---
Exam(s) MR BRAIN WO EXAM: MR BRAIN WO CLINICAL HISTORY: Acute Delerium with Parkinson's TECHNIQUE: Multiplanar multisequence MRI of the brain was performed. COMPARISON: CT CT HEAD - STROKE PROTOCOL from 05/30/2024 FINDINGS: There is artifact on the lower images secondary to a metallic density in the skin of the left side o f the face. VENTRICLES AND EXTRA AXIAL SPACES: Normal in size and morphology for the patient's age. MIDLINE SHIFT: None. CEREBRAL PARENCHYMA: No focus of restricted diffusion to suggest acute infarct. No space-occupying le jose raul identified. Mild to moderate atrophy consistent with the patient's age. Mild to moderate scatte red foci of high signal in the white matter consistent with sequela of chronic microvascular disease. BRAINSTEM/CEREBELLUM: Obscured on some sequences due to metallic artifact. VISUALIZED PARANASAL SINUSES: Mild mucosal thickening at the floors of the maxillary sinuses. MASTOIDS:Clear. Vasculature: Normal flow void. PITUITARY GLAND: Unremarkable. ORBITS: Unremarkable. IMPRESSION: No evidence of acute infarct or hemorrhage. DATA REPOSITORY:
--- NOTE | 2024-05-31 08:26 | PDOC.CMIN ---
Date of service: 05/31/24 Time of Service: 08:27 Care Management Initial Assmt Initial Assessment Reason for Hospitalization: Pneumonia and delirium Functional Status/Living Situation Patient Presentation: Sam was sitting up in bed visiting with Haresh, a gentleman from his orthodoxy, when CM met with him. He appeared to be in good spirits and joked with CM during the conversation. Sam does carry a diagnosis of dementia and there were times in the conversation where it seemed possible his information may not have been totally accurate. Sam lives in [place], [place] with his Kalyani and his castle lornaiel Kristy. He spoke highly of his dog, noting how sweet tempered she is and how close they are. He has one son who lives on [place] which is where Sam originally came from. He shared that he has been in [place] about 40 years. He also had a daughter but she passed. Sam was in the [employer] and was injured during his time in the service. He is [facility] connected and receives his healthcare at the [place] in [facility]. Sam stated that he is still working but it was not clear if that was a serious response. 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 Sam prides himself on being very strong and independent and only requires the use of a cane for ambulation. Town of Residence: [place] Resides with: Spouse (Kalyani) Natural Supports: and orthodoxy members Employment Status: Employed ([employer]) Instrumental Activities of Daily Living (ADLs): Independent Medications Medication Management: No Issues/Barriers identified Physical Functioning/Mobility Assistive Device: cane Advance Directives Advance Directives: Do you have an Advance Directive: AD On File at [facility]: N 05/30/24 20:38 Date Asked 05/31/24 05/31/24 12:12 AD Date Reviewed COLST On File at [facility] COLST Date Scanned Code Status Resuscitation Status Full Code Portal Pt does not currently have a portal and education provided: No Portal Education: Other (not local) Insurance Coverage/Financial Issues Insurance: [facility] Care Team Visit Care Team Role Provider Type Sesar Ambrosio MD [facility] STAFF PHYSICIAN Unknown Unknown Primary Care Provider STAFF PHYSICIAN InPatient Bradly Lindquist Other Providers OTHER Rodolfo Olivares MD Emergency Provider [facility] STAFF PHYSICIAN Thuan Rodriguez Admit Provider NON-[facility] STAFF PHYSICIAN Attending Provider Discharge Potential Discharge Needs: PCP F/U Appt Anticipated Barriers to Discharge: None Identified Patient/Family Education Needs: Review discharge instructions, discuss Ask Me Three Transportation: Private vehicle Plan: Anticipate Don will return home, possibly with new outpatient PT, when medically cleared. He will follow up with his PCP and plan of care and transport with family. CM will follow and continue to support discharge planning efforts. Social Determinants of Health Screening Will the Patient Participate in the Screening?: Unable to obtain PFSH All Active Problems (Updated 05/31/24 @ 07:45 by Ester Briceno) Delirium (Acute) Constipation (Acute) Cholelithiasis without cholecystitis (Acute) Glaucoma (Chronic) Hypokalemia (Chronic) Parkinson's disease (Chronic) Social History (System 05/31/24 @ 07:45 by Ester Briceno) Smoking/Tobacco Use Status: Never Smoking risk assessment performed?: Yes Alcohol Intake: never Substance use type: does not use
[2024-05-31] MEDS: Aspirin 81 MG CHEW PO (09:22)
[2024-05-31] MEDS: Polyethylene Glycol 3350 17 GM PACKET PO (09:22)
[2024-05-31] MEDS: Docusate Sodium 100 MG CAP PO ×2 (09:22→19:52)
[2024-05-31] MEDS: Carbidopa 25/Levodopa 100 TAB PO ×3 (09:22→19:52)
[2024-05-31] MEDS: Enoxaparin 40 MG/0.4 ML SYR SC (09:23)
[2024-05-31] MEDS: Potassium Chloride 10 MEQ TABCR PO (09:23)
[2024-05-31 09:56] LABS: Vancomycin, Random 9.6 ug/mL
[2024-05-31] MEDS: Timolol 0.5% 5 ML BTL OP (10:41)
[2024-05-31] MEDS: CEFEPIME 2 GM in Normal Saline 100 ML IVPB ×2 (10:42→22:01)
--- NOTE | 2024-05-31 12:47 | DI.RAD_ITS ---
Exam(s) XR FACIAL BONES LIMITED EXAM: XR FACIAL BONES LIMITED CLINICAL HISTORY: metal in cheek? MRI pending. TECHNIQUE: 2D digital imaging was performed. COMPARISON: No exams were available for comparison FINDINGS: BONES: No evidence of fracture. Sinuses are Elva clear. Advanced degenerative changes in the cer vical spine. SOFT TISSUES: There is a radiopaque foreign body seen in the subcutaneous tissue of the left side of the mandible near the angle. There is a tiny metallic density seen the anterior aspect of the mandib le in the soft tissues. Tiny there is a tiny metallic density seen on the right side near the maxill a. IMPRESSION: Three metallic foreign bodies are identified in the face. DATA REPOSITORY: RADIATION DOSE DELIVERED:
--- NOTE | 2024-05-31 13:55 | W.PC.ACHO ---
Registration Status: Primary Language: Preferred Language: ED Information & Data Chief Complaint AMS/LOC 05/30/24 22:53 Triage Note PT has had weakness that 05/30/24 19:17 started this morning at 1230 . PT had some confusion also . PT thought his pants were down and urinated on himself . he was handed crackers and she tried to drink them. PT was DC from [facility] last night Most Recent Vital Signs Temperature 36.7 C 05/31/24 09:37 Temperature Source Temporal Artery Scan 05/31/24 01:10 Pulse 44 L 05/31/24 12:02 Pulse 49 L 05/31/24 12:02 Respiratory Rate 17 05/31/24 12:02 Respiratory Effort Normal 05/31/24 01:10 Respiratory Depth Normal 05/31/24 01:10 Respiratory Pattern Normal 05/31/24 01:10 Blood Pressure 141/88 H 05/31/24 12:02 Blood Pressure Mean 106 05/31/24 12:02 Blood Pressure Position Supine 05/31/24 01:10 Pulse Oximetry 93 05/31/24 12:02 Oxygen Delivery Method Room Air 05/31/24 01:10 Oxygen Flow Rate 0 05/31/24 01:10 Pain Level 0 05/31/24 01:10 Allergies No Known Allergies Allergy (Unverified 05/31/24 07:45) Active Medications Generic Name Dose Route Start Last Admin Trade Name Freq PRN Reason Stop Dose Admin Aspirin 81 mg 05/31/24 08:30 05/31/24 09:22 Aspirin 81 Mg Chew PO 81 mg DAILY GEE Administration Carbidopa/Levodopa 1 tab 05/31/24 08:30 05/31/24 09:22 Carbidopa 25/Levodopa 100 Tab PO 1 tab TID GEE Administration Docusate Sodium 100 mg 05/31/24 00:51 05/31/24 09:22 Docusate Sodium 100 Mg Cap PO 100 mg TID PRN PRN Administration Enoxaparin Sodium 40 mg 05/31/24 08:30 05/31/24 09:23 Enoxaparin 40 Mg/0.4 Ml Syr SC 40 mg Q24H GEE Administration Cefepime HCl 2 gm/ Sodium 100 mls @ 200 mls/hr 05/31/24 10:00 05/31/24 11:34 Chloride IVPB Infused Q12H GEE Infusion Polyethylene Glycol 17 gm 05/31/24 00:51 05/31/24 09:22 Polyethylene Glycol 3350 17 Gm Packet PO 17 gm DAILY PRN PRN Administration Constipation Potassium Chloride 10 meq 05/31/24 08:30 05/31/24 09:23 Potassium Chloride 10 Meq Tabcr PO 10 meq DAILY GEE Administration Sodium Chloride 0 ml 05/30/24 19:31 05/31/24 05:31 Normal Saline Flush 10 Ml Syr IVP 30 ml PRN PRN Administration Sodium Chloride 0 ml 05/30/24 20:00 05/31/24 09:23 Normal Saline Flush 10 Ml Syr IVP 20 ml BID GEE Administration Timolol Maleate 0 ml 05/31/24 08:30 05/31/24 10:41 Timolol 0.5% 5 Ml Btl OP 1 drp DAILY GEE Administration IV IV Catheter Type [Right Saline Lock Antecubital] IV Catheter Gauge [Right 18 Antecubital] Diet Orders Category Date Time Status Regular/Normal [DIET] Nutrition 05/31/24 Breakfast Active Diagnostics 05/31/24 05/31/24 05/31/24 Range/Units 19:30 09:17 05:25 WBC 7.50 (4.4-10.8) 10^3/uL RBC 4.41 (4.36-5.78) 10^6/uL Hgb 14.4 (13.5-17.5) g/dL Hct 43.4 (40.0-50.0) % MCV 98 H (80-95) fL MCH 32.7 (27.0-33.0) pg MCHC 33.2 (32.0-36.0) % RDW 12.0 (11.8-14.1) % Plt Count 155 (130-400) 10^3/uL MPV 10.3 (8.0-11.0) fL Immature Gran % % Neutrophils % % Lymphocytes % % Monocytes % % Eosinophils % % Basophils % % Nucleated RBC % (0.0-0.3) % Absolute Neutrophils (1.2-6.7) 10^3/uL Absolute Lymphocytes (1.2-3.4) 10^3/uL Absolute Monocytes (0.1-0.8) 10^3/uL Absolute Eosinophils (0.0-0.7) 10^3/uL Absolute Basophils (0.0-0.2) 10^3/uL PT 11.4 H (9.1-11.1) sec INR 1.1 (0.9-1.1) Sodium 138 (136-145) mmol/L Potassium 4.0 (3.5-5.1) mmol/L Chloride 101 (98-107) mmol/L Carbon Dioxide 29.8 (21.0-32.0) mmol/L Anion Gap 7.2 (3-11) mmol/L BUN 18 (7-18) mg/dL Creatinine 1.1 (0.70-1.30) mg/dL Est GFR (CKD-EPI 2020) 66.61 (mL/min/1.73m2) Glucose 94 (74-106) mg/dL Calcium 8.7 (8.5-10.1) mg/dL Magnesium 1.8 mg/dL Total Bilirubin 1.6 H (0.2-1.0) mg/dL AST 19 (15-37) U/L ALT 23 (16-63) U/L Alkaline Phosphatase 78 (46-116) U/L Ammonia (11-32) umol/L Troponin I (<or=76) ng/L Total Protein 6.1 L (6.4-8.2) g/dL Albumin 3.0 L (3.4-5.0) g/dL TSH (0.36-3.74) uIU/mL Urine Color (Yellow) Urine Clarity (Clear) Urine pH (5-8) Ur Specific [place] (1.005-1.025) Urine Protein (Neg-Trace) mg/dL Urine Ketones (Negative) mg/dL Urine Blood (Negative) Urine Nitrite (Negative) Urine Bilirubin (Negative) Urine Urobilinogen (Up to 0.2) mg/dL Ur Leukocyte Esterase (Negative) Urine RBC (0-2) HPF Urine WBC (0-5) HPF Ur Epithelial Cells (Negative) HPF Urine Crystals (Negative) HPF Urine Bacteria (Negative) HPF Urine Casts (Negative) LPF Urine Mucus (Negative) Ur Culture Indicated? Urine Glucose (Negative) mg/dL Random Vancomycin Cancelled 9.6 ug/mL Urine Opiates Screen (Negative) Urine Methadone Screen (Negative) Ur Barbiturates Screen (Negative) Ur Tricyclics Screen (Negative) Ur Amphetamines Screen (Negative) U Benzodiazepines Scrn (Negative) Urine Cocaine Screen (Negative) Ur THC Screen (Negative) Ethyl Alcohol (<10) mg/dL COVID-19 Source SARS-CoV-2 (PCR) (Negative) Influenza Type A (PCR) (Negative) Influenza Type B (PCR) (Negative) RSV (PCR) (Negative) 05/30/24 05/30/24 05/30/24 Range/Units 23:47 22:31 22:05 WBC (4.4-10.8) 10^3/uL RBC (4.36-5.78) 10^6/uL Hgb (13.5-17.5) g/dL Hct (40.0-50.0) % MCV (80-95) fL MCH (27.0-33.0) pg MCHC (32.0-36.0) % RDW (11.8-14.1) % Plt Count (130-400) 10^3/uL MPV (8.0-11.0) fL Immature Gran % % Neutrophils % % Lymphocytes % % Monocytes % % Eosinophils % % Basophils % % Nucleated RBC % (0.0-0.3) % Absolute Neutrophils (1.2-6.7) 10^3/uL Absolute Lymphocytes (1.2-3.4) 10^3/uL Absolute Monocytes (0.1-0.8) 10^3/uL Absolute Eosinophils (0.0-0.7) 10^3/uL Absolute Basophils (0.0-0.2) 10^3/uL PT (9.1-11.1) sec INR (0.9-1.1) Sodium (136-145) mmol/L Potassium (3.5-5.1) mmol/L Chloride (98-107) mmol/L Carbon Dioxide (21.0-32.0) mmol/L Anion Gap (3-11) mmol/L BUN (7-18) mg/dL Creatinine (0.70-1.30) mg/dL Est GFR (CKD-EPI 2020) (mL/min/1.73m2) Glucose (74-106) mg/dL Calcium (8.5-10.1) mg/dL Magnesium mg/dL Total Bilirubin (0.2-1.0) mg/dL AST (15-37) U/L ALT (16-63) U/L Alkaline Phosphatase (46-116) U/L Ammonia (11-32) umol/L Troponin I Cancelled (<or=76) ng/L Total Protein (6.4-8.2) g/dL Albumin (3.4-5.0) g/dL TSH (0.36-3.74) uIU/mL Urine Color Yellow (Yellow) Urine Clarity Clear (Clear) Urine pH 7.0 (5-8) Ur Specific [place] 1.020 (1.005-1.025) Urine Protein Trace (Neg-Trace) mg/dL Urine Ketones 15 H (Negative) mg/dL Urine Blood Trace-intact H (Negative) Urine Nitrite Negative (Negative) Urine Bilirubin Negative (Negative) Urine Urobilinogen 0.2 (Up to 0.2) mg/dL Ur Leukocyte Esterase Negative (Negative) Urine RBC 3-5 H (0-2) HPF Urine WBC 0-2 (0-5) HPF Ur Epithelial Cells Rare (Negative) HPF Urine Crystals Rare Calcium Oxalate (Negative) HPF Urine Bacteria Rare (Negative) HPF Urine Casts Negative (Negative) LPF Urine Mucus Moderate (Negative) Ur Culture Indicated? No Urine Glucose Negative (Negative) mg/dL Random Vancomycin ug/mL Urine Opiates Screen Negative (Negative) Urine Methadone Screen Negative (Negative) Ur Barbiturates Screen Negative (Negative) Ur Tricyclics Screen Negative (Negative) Ur Amphetamines Screen Negative (Negative) U Benzodiazepines Scrn Negative (Negative) Urine Cocaine Screen Negative (Negative) Ur THC Screen Negative (Negative) Ethyl Alcohol (<10) mg/dL COVID-19 Source Nasopharynx SARS-CoV-2 (PCR) Negative (Negative) Influenza Type A (PCR) Negative (Negative) Influenza Type B (PCR) Negative (Negative) RSV (PCR) Negative (Negative) 05/30/24 05/30/24 05/30/24 Range/Units 20:36 19:31 18:57 WBC 10.17 (4.4-10.8) 10^3/uL RBC 4.86 (4.36-5.78) 10^6/uL Hgb 15.9 (13.5-17.5) g/dL Hct 48.2 (40.0-50.0) % MCV 99 H (80-95) fL MCH 32.7 (27.0-33.0) pg MCHC 33.0 (32.0-36.0) % RDW 12.2 (11.8-14.1) % Plt Count 184 (130-400) 10^3/uL MPV 10.7 (8.0-11.0) fL Immature Gran % 0.2 % Neutrophils % 71.8 % Lymphocytes % 14.1 % Monocytes % 12.8 % Eosinophils % 0.8 % Basophils % 0.3 % Nucleated RBC % 0.0 (0.0-0.3) % Absolute Neutrophils 7.31 H (1.2-6.7) 10^3/uL Absolute Lymphocytes 1.43 (1.2-3.4) 10^3/uL Absolute Monocytes 1.30 H (0.1-0.8) 10^3/uL Absolute Eosinophils 0.08 (0.0-0.7) 10^3/uL Absolute Basophils 0.03 (0.0-0.2) 10^3/uL PT 11.3 H (9.1-11.1) sec INR 1.1 (0.9-1.1) Sodium 138 (136-145) mmol/L Potassium 3.4 L (3.5-5.1) mmol/L Chloride 100 (98-107) mmol/L Carbon Dioxide 33.3 H (21.0-32.0) mmol/L Anion Gap 4.7 (3-11) mmol/L BUN 17 (7-18) mg/dL Creatinine 1.2 (0.70-1.30) mg/dL Est GFR (CKD-EPI 2020) 60.00 (mL/min/1.73m2) Glucose 92 (74-106) mg/dL Calcium 9.6 (8.5-10.1) mg/dL Magnesium 1.9 mg/dL Total Bilirubin 1.5 H (0.2-1.0) mg/dL AST 20 (15-37) U/L ALT 10 L (16-63) U/L Alkaline Phosphatase 95 (46-116) U/L Ammonia < 10 L (11-32) umol/L Troponin I 11 13 (<or=76) ng/L Total Protein 7.4 (6.4-8.2) g/dL Albumin 3.8 (3.4-5.0) g/dL TSH 0.65 (0.36-3.74) uIU/mL Urine Color (Yellow) Urine Clarity (Clear) Urine pH (5-8) Ur Specific [place] (1.005-1.025) Urine Protein (Neg-Trace) mg/dL Urine Ketones (Negative) mg/dL Urine Blood (Negative) Urine Nitrite (Negative) Urine Bilirubin (Negative) Urine Urobilinogen (Up to 0.2) mg/dL Ur Leukocyte Esterase (Negative) Urine RBC (0-2) HPF Urine WBC (0-5) HPF Ur Epithelial Cells (Negative) HPF Urine Crystals (Negative) HPF Urine Bacteria (Negative) HPF Urine Casts (Negative) LPF Urine Mucus (Negative) Ur Culture Indicated? Urine Glucose (Negative) mg/dL Random Vancomycin ug/mL Urine Opiates Screen (Negative) Urine Methadone Screen (Negative) Ur Barbiturates Screen (Negative) Ur Tricyclics Screen (Negative) Ur Amphetamines Screen (Negative) U Benzodiazepines Scrn (Negative) Urine Cocaine Screen (Negative) Ur THC Screen (Negative) Ethyl Alcohol < 3.0 (<10) mg/dL COVID-19 Source SARS-CoV-2 (PCR) (Negative) Influenza Type A (PCR) (Negative) Influenza Type B (PCR) (Negative) RSV (PCR) (Negative) 05/30/24 20:30 Blood Culture - Pending Blood 05/30/24 20:07 Blood Culture - Pending Blood Intake and Output - 24 Hour Total 05/30/24 19:13 thru 05/31/24 11:46 Intake Total 670 Output Total 625 Balance 45 Weight 65.5 kg Intake: IV 470 Oral 200 Output: Urine 625 Other: Urine Color Yellow Urine Appearance Clear Falls Risk Assessment History of Falls Previous History 05/31/24 01:10 Contributing Factors Confusion 05/31/24 01:10 Ambulatory Aids Uses ambulatory device 05/31/24 01:10 Tubes/Lines None 05/30/24 19:23 Gait Evaluation W/no contributing factors 05/30/24 19:23 Cognition Cognitive impairment 05/30/24 19:23 Fall Total Score 33 05/31/24 01:10 Level of Risk Moderate Risk 05/31/24 01:10 v v v v v v v v v Sending and/or Receiving Nurses: Please use comment section below to note any information pertinent to the patient hand-off not included above. Information / Comments: A&Ox2, Sinus Toño, Lungs dim w/ crackles, hx of constipation, uses urinal w/ assistance to void, uses cane at home, walker here with one assist, Does not ring correctly, fall risk, LLL infiltrate w/ delerium, recently at [facility], Vegan Diet Report received from: Madison Perdue SOAP GRINDER at [id number]
--- NOTE | 2024-05-31 14:01 | W.NUTRFU ---
Date of service: 05/31/24 Time of Service: 14:01 Nutrition Note NOTE: 84yo male admitted with acute delirium with hx of parkinson's. Ordered for regular diet with normal consistencies No weight hx to go by and patient not a reliable historian at this time. Total protein and albumin labs low today. Lytes wnl Lower to fair po intake this admission. Will offer oral nutrition supplements at meal to support protein intake Will continue to monitor weight, po intake, labs Time Spent in Nutritional Counseling and Treatment: 0
[2024-05-31] MEDS: VANCOMYCIN 1,250 MG in Normal Saline 250 ML 166.667 MG IVPB (14:29)
--- NOTE | 2024-05-31 15:12 | IN_ITS ---
PT Notes Visit Reasons: Acute delirium, Left lower lobe pneumonia, [place] Inpatient Physical Therapy Evaluation Date: 05/31/24 Referring Doctor: Dr. Thuan Rodriguez PT Orders: PT CONSULT: exacerbation of chronic condition Precautions: fall, standard Patient Profile/Admitting Diagnosis: Patient admitted to med surg under observation after presenting to ER with delirium. Has underlying Parkinson's Disease. Social History/Home Situation: Lives in a private home with his . States that he is active at baseline. Uses a cane because they told me I have to. 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 Has had falls, but reports that the last was a year ago, when he fell in the [place] and broke his left hip. He was able to get himself up and drive his tractor home. Equipment Owned/DME: cane Subjective: Don states that he is overall feeling good. Admits that his balance is a little off today, but otherwise has no complaints. Objective: General Observation: Resting in chair, with IV in LUE. Mental Status: A&Ox3. Provides clear history. Pain: denies Vital Signs: monitored by nursing ROM: Right Upper Extremity: WFL Left Upper Extremity: WFl Right Lower Extremity: WFL Left Lower Extremity: WFL Strength: Right Upper Extremity: Shoulder flexion 4/5. Biceps 4+/5. Airworthiness Safety Inspector is strong and equal. Left Upper Extremity: Shoulder flexion 4/5. Biceps 4+/5. Airworthiness Safety Inspector is strong and equal. Right Lower Extremity: Hip flexion 5/5. Quads 5/5. Ankle DF 5/5. Left Lower Extremity: Hip flexion 5/5. Quads 5/5. Ankle DF 5/5. Bed Mobility/Transfers: sit-stand: supervision stand-sit: supervision Gait: Ambulates 150' with cane in LUE, CGA. Demonstrates minor path deviation, but without LOB or safety concerns. Balance: Static Sitting: normal Dynamic Sitting: normal Static Standing: good Dynamic Standing: fair Special Tests: Mobility Limitations Standardized Measure [facility] AM-PAC 6 clicks Basic Mobility Inpatient Short Form: Raw Score: 22 CMS Score: 26% impairment Klein Balance Test: 47/56 Informed Consent/Education: Patient instructed in purpose of PT consult and plan of care. Treatment: Initial Evaluation (57000) Neuromuscular Re-education (79431): small MARKEL standing x 30 seconds, CGA static stand with head turns 30 seconds tandem stance 20 seconds each side, CGA sit-stand x 3 Assessment: Patient is an 84 year old male referred to physical therapy services in acute care setting, where is remains under observation status due to delirium. Patient presents with balance impairments, which I suspect are chronic in nature. Recommend follow up with outpatient PT for balance retraining to reduce fall risk, particularly given his active lifestyle. Additionally encouraged him to consistently use cane upon return home. He'll benefit from PT services during his stay here in the hospital to maximize safety and reduce fall risk, and is appropriate for discharge home once medically stable. He currently demonstrates the following impairment level findings: 1. Klein Balance score 47/56 2. gait impairments Impairments are contributing to the following functional limitations: 1. gait impairments 2. mild balance impairment, supporting use of cane Patient is assessed as Low 21796 complexity based on the following: History: As above. Complicating factor of PD Examination: functional limitations as above Presentation: stable Decision Making: low complexity Goals: Goals X1 week 1. Supine-Sit : supervision 2. Sit-Supine : supervision 3. Sit-Stand : supervision 4. Stand-Sit : supervision 5. Bed-Chair : supervision with cane 6. Chair-Bed : supervision with cane 7. Gait : supervision with cane x 150' Plan of Care/Treatment Plan: 1-2x/day, 7 days/week x 1 week. Plan of care has been reviewed with the KENO WRITER providing the service under Physical Therapy direction. Initiate Physical Therapy intervention for strengthening, bed mobility, transfers, gait, stairs, balance training, use of assistive device. DISCHARGE RECOMMENDATIONS: Home with services: outpatient PT TREATMENT CODE/TIME: 65836, 79816 ([id number]) Kelly Bauer, PT, DPT [facility] All Active Problems (Updated 05/31/24 @ 07:45 by Ester Briceno) Delirium (Acute) Constipation (Acute) Cholelithiasis without cholecystitis (Acute) Glaucoma (Chronic) Hypokalemia (Chronic) Parkinson's disease (Chronic)
--- NOTE | 2024-05-31 16:28 | W.PM.PROGNOT ---
Date of Service Date of service: 05/31/24 Time of Service: 08:28 Assessment and Plan Assessment and plan (1) Delirium: Start date: 05/30/24 Assessment and plan: This is an 84-year-old gentleman who had acute delirium at home different than his baseline with chronic Parkinson disease. Admitted for CVA/TIA assessment which has been reassuring so far. Appears to be possibly related to new pneumonia, which is being treated. (2) Parkinson's disease: Assessment and plan: Continue Sinemet. PT evaluation. (3) Hypokalemia: Assessment and plan: normalized this morning (4) Glaucoma: Assessment and plan: Continue outpatient eyedrops. Patient will follow-up at the [facility] for this problem. (5) Cholelithiasis without cholecystitis: Start date: 05/29/24 Assessment and plan: Follow-up [facility] general surgery. I agree this does not appear to be an acute problem. (6) Constipation: Start date: 05/29/24 Assessment and plan: Continue outpatient therapy for bowel maintencance (7) DVT prophylaxis: Status: Acute Assessment and plan: enoxaparin Subjective Subjective Patient reports: feels better and voiding w/o difficulty; denies nausea, vomiting, shortness of breath or fever Interval history since last seen: Feeling okay. No abdominal pain now. little cough. would like to eat. Exam Narrative Exam Narrative: General: Alert, oriented to person and hospital. Gives vague history. HEENT: conj clear, no icterus, MMM Lungs: normal effort, slight rales left base, otherwise clear Heart: Bradycardic rate with normal rhythm. No appreciable murmur or gallop. Abdomen: +BS, soft, NT/ND Extremities: no c/c/e Neuro: Cranial nerves II to XII grossly intact, no focalizing motor deficits. Increased tone but no cogwheel rigidity to exam. No resting tremor. Psych: Flattened affect with normal mood. Recent memory deficit notable Objective Last Vital Signs Temp 36.6 C 05/31/24 15:27 Pulse 50 L 05/31/24 15:27 Resp 16 05/31/24 15:27 BP 148/86 H 05/31/24 15:27 Pulse Ox 98 05/31/24 15:27 Laboratory Results - last 24 hr 05/30/24 05/30/24 05/30/24 18:57 19:31 20:36 WBC 10.17 RBC 4.86 Hgb 15.9 Hct 48.2 MCV 99 H MCH 32.7 MCHC 33.0 RDW 12.2 Plt Count 184 MPV 10.7 Immature Gran % 0.2 Neutrophils % 71.8 Lymphocytes % 14.1 Monocytes % 12.8 Eosinophils % 0.8 Basophils % 0.3 Nucleated RBC % 0.0 Absolute Neutrophils 7.31 H Absolute Lymphocytes 1.43 Absolute Monocytes 1.30 H Absolute Eosinophils 0.08 Absolute Basophils 0.03 PT 11.3 H INR 1.1 Sodium 138 Potassium 3.4 L Chloride 100 Carbon Dioxide 33.3 H Anion Gap 4.7 BUN 17 Creatinine 1.2 Est GFR (CKD-EPI 2020) 60.00 Glucose 92 Calcium 9.6 Magnesium 1.9 Total Bilirubin 1.5 H AST 20 ALT 10 L Alkaline Phosphatase 95 Ammonia < 10 L Troponin I 13 11 Total Protein 7.4 Albumin 3.8 TSH 0.65 Urine Color Urine Clarity Urine pH Ur Specific [place] Urine Protein Urine Ketones Urine Blood Urine Nitrite Urine Bilirubin Urine Urobilinogen Ur Leukocyte Esterase Urine RBC Urine WBC Ur Epithelial Cells Urine Crystals Urine Bacteria Urine Casts Urine Mucus Ur Culture Indicated? Urine Glucose Random Vancomycin Urine Opiates Screen Urine Methadone Screen Ur Barbiturates Screen Ur Tricyclics Screen Ur Amphetamines Screen U Benzodiazepines Scrn Urine Cocaine Screen Ur THC Screen Ethyl Alcohol < 3.0 COVID-19 Source SARS-CoV-2 (PCR) Influenza Type A (PCR) Influenza Type B (PCR) RSV (PCR) 05/30/24 05/30/24 05/30/24 22:05 22:31 23:47 WBC RBC Hgb Hct MCV MCH MCHC RDW Plt Count MPV Immature Gran % Neutrophils % Lymphocytes % Monocytes % Eosinophils % Basophils % Nucleated RBC % Absolute Neutrophils Absolute Lymphocytes Absolute Monocytes Absolute Eosinophils Absolute Basophils PT INR Sodium Potassium Chloride Carbon Dioxide Anion Gap BUN Creatinine Est GFR (CKD-EPI 2020) Glucose Calcium Magnesium Total Bilirubin AST ALT Alkaline Phosphatase Ammonia Troponin I Cancelled Total Protein Albumin TSH Urine Color Yellow Urine Clarity Clear Urine pH 7.0 Ur Specific [place] 1.020 Urine Protein Trace Urine Ketones 15 H Urine Blood Trace-intact H Urine Nitrite Negative Urine Bilirubin Negative Urine Urobilinogen 0.2 Ur Leukocyte Esterase Negative Urine RBC 3-5 H Urine WBC 0-2 Ur Epithelial Cells Rare Urine Crystals Rare Calcium Oxalate Urine Bacteria Rare Urine Casts Negative Urine Mucus Moderate Ur Culture Indicated? No Urine Glucose Negative Random Vancomycin Urine Opiates Screen Negative Urine Methadone Screen Negative Ur Barbiturates Screen Negative Ur Tricyclics Screen Negative Ur Amphetamines Screen Negative U Benzodiazepines Scrn Negative Urine Cocaine Screen Negative Ur THC Screen Negative Ethyl Alcohol COVID-19 Source Nasopharynx SARS-CoV-2 (PCR) Negative Influenza Type A (PCR) Negative Influenza Type B (PCR) Negative RSV (PCR) Negative 05/31/24 05/31/24 05/31/24 05:25 09:17 19:30 WBC 7.50 RBC 4.41 Hgb 14.4 Hct 43.4 MCV 98 H MCH 32.7 MCHC 33.2 RDW 12.0 Plt Count 155 MPV 10.3 Immature Gran % Neutrophils % Lymphocytes % Monocytes % Eosinophils % Basophils % Nucleated RBC % Absolute Neutrophils Absolute Lymphocytes Absolute Monocytes Absolute Eosinophils Absolute Basophils PT 11.4 H INR 1.1 Sodium 138 Potassium 4.0 Chloride 101 Carbon Dioxide 29.8 Anion Gap 7.2 BUN 18 Creatinine 1.1 Est GFR (CKD-EPI 2020) 66.61 Glucose 94 Calcium 8.7 Magnesium 1.8 Total Bilirubin 1.6 H AST 19 ALT 23 Alkaline Phosphatase 78 Ammonia Troponin I Total Protein 6.1 L Albumin 3.0 L TSH Urine Color Urine Clarity Urine pH Ur Specific [place] Urine Protein Urine Ketones Urine Blood Urine Nitrite Urine Bilirubin Urine Urobilinogen Ur Leukocyte Esterase Urine RBC Urine WBC Ur Epithelial Cells Urine Crystals Urine Bacteria Urine Casts Urine Mucus Ur Culture Indicated? Urine Glucose Random Vancomycin 9.6 Cancelled Urine Opiates Screen Urine Methadone Screen Ur Barbiturates Screen Ur Tricyclics Screen Ur Amphetamines Screen U Benzodiazepines Scrn Urine Cocaine Screen Ur THC Screen Ethyl Alcohol COVID-19 Source SARS-CoV-2 (PCR) Influenza Type A (PCR) Influenza Type B (PCR) RSV (PCR) Time Spent with Patient Time Spent with Patient: 35-49 minutes Time was spent: preparing to see the patient(eg.review tests), obtaining and/or reviewing separately otained hiistory, ordering medications,tests, procedures, referring, communicating with other health associate director career services, indepentently interpreting results, counseling the patient and care coordination
[2024-05-31] MEDS: Latanoprost 0.005% 2.5 ML BTL OP (19:52)
[2024-06-01 02:50] VITALS: BP 122/70; PULSE 60; RESP 20; TEMP 37.2; O2SAT 93
[2024-06-01 07:12] VITALS: BP 125/74; PULSE 52; RESP 16; TEMP 36.7; O2SAT 95
[2024-06-01] MEDS: Aspirin 81 MG CHEW PO (07:53)
[2024-06-01] MEDS: Normal Saline Flush 10 ML SYR IVP (07:53)
[2024-06-01] MEDS: Timolol 0.5% 5 ML BTL OP (07:53)
[2024-06-01] MEDS: Enoxaparin 40 MG/0.4 ML SYR SC (07:53)
[2024-06-01] MEDS: Carbidopa 25/Levodopa 100 TAB PO ×2 (07:53→13:01)
[2024-06-01] MEDS: Potassium Chloride 10 MEQ TABCR PO (07:53)
[2024-06-01] MEDS: Polyethylene Glycol 3350 17 GM PACKET PO (08:01)
[2024-06-01] MEDS: Docusate Sodium 100 MG CAP PO (08:01)
[2024-06-01 09:24] LABS: MRSA PCR Negative (Negative)
[2024-06-01] MEDS: CEFEPIME 2 GM in Normal Saline 100 ML IVPB (09:48)
[2024-06-01 11:30] VITALS: BP 120/64; PULSE 47; RESP 17; TEMP 36.8; O2SAT 96
[2024-06-01] MEDS: Azithromycin 250 MG TAB 500 MG PO (11:43)
[2024-06-01] MEDS: Senna TAB 1 TAB PO (11:43)
--- NOTE | 2024-06-01 11:46 | DSE_ITS ---
Date of service: 06/01/24 Time of Service: 11:46 DS: Diagnosis Discharge Diagnosis (1) Delirium: Status: Acute (2) Parkinson's disease: Status: Chronic (3) Hypokalemia: Status: Resolved (4) Glaucoma: Status: Chronic (5) Cholelithiasis without cholecystitis: Status: Acute (6) Constipation: Status: Acute Discharge Plan Disposition Patient Disposition: Home Condition: Stable Discharge Details Reason For Visit: Acute delirium, Left lower lobe pneumonia, Kimberly Admit Date/Time: 05/30/24 23:43 Admit Provider: Thuan Rodriguez Attending Provider: Thuan Rodriguez Primary Care Provider: Unknown,Unknown Hospital Course Hospital Course: 84 [facility] with Parkinson disease, recent admission at [facility] for abdominal pain a/w constipation, who was admitted with acute delerium after waking up confused on the day of admission. He did not have focal neurologic findings. CT of the brain on admission was negative for acute disease, as was the MRI 05/31. Echocardiogram showed normal LVEF of 65% and no other significant abnormalities. He did not have events on cardiac monitoring. He returned to his baseline mental status by the second day of hospitalization and was stable. He was treated with aspirin and atorvastatin but based on the workup this was not felt to be an acute cerebrova scular event so these were stopped at discharge. Likewise he did not have carotid imaging and was not discharged with 30 day quality assurance monitor chassis. These could be reconsidered as an outpatient. He did have a left lower lobe pulmonary infiltrate. He was initially treated with cefepime and vancomycin because of his recent hospitalizaiton. MRSA PCR from nares was negative. He was transitioned to ceftriaxone and azithromycin and discharged with 3 more days of amox/clav and azithro. At his previous admission he was diagnosed with cholecystitis. He did not have any RUQ pain or tenderness on this admission. His labs were benign other than a mild elevation of bilirubin of 1.5-1.6. He should follow up with surgery as planned. He was treated with docusate and polyethylene glycol to help his con stipation. Senna was added. He should continue a bowel regimen. He had mild hypokalemia at 3.4 and this normalized with supplementation. He was evaluated by physical therapy and outpatient physical therapy was recommended FOLLOW UP: -primary care in 1-2 weeks -surgical follow up for -follow bowel function -follow potassium and bilirubin Home Meds and New Rx's Prescriptions: New polyethylene glycol 3350 17 gram Powder In Packet 17 g PO DAILY PRN PRN (Reason: Constipation) Qty: 1 0RF sennosides-docusate sodium 8.6-50 mg tablet 1 tab-cap PO BID PRNQty: 60 0RF Rx Instructions: given until regular BMs amoxicillin-pot clavulanate 875-125 mg tablet 1 tab PO BID Qty: 6 0RF Rx Instructions: start 06/02 azithromycin 250 mg tablet 250 mg PO DAILY 3 Days Qty: 3 0RF Rx Instructions: start on 06/02 Continued timolol [Betimol] 0.5 % drops 1 drp ophthalmic (eye) DAILY Rx Instructions: 1 drop to both eyes every morning carbidopa-levodopa 25-100 mg tablet 1 tab PO TID latanoprost [Xalatan] 0.005 % drops 1 drp ophthalmic (eye) QPM Rx Instructions: 1 drop to both eyes at bedtime zinc gluconate PO DAILY ferrous sulfate PO DAILY folic acid PO DAILY cyanocobalamin (vitamin B-12) PO DAILY PRN potassium chloride PO DAILY Discharge Instructions Instructions: Community-Acquired Pneumonia, Adult (DC) Stand Alone Forms: Nursing Discharge Form Referrals: Unknown,Unknown [Primary Care Provider] - (MD---The office will call you for an appointment, I spoke with them on 06/01) Activity:: Activity as Tolerated Equipment/Supplies:: No Equipment Needed Diet:: As Tolerated Discharge Orders Discharge Orders: Discharge Order (Routine); Ordered 06/01/24 Ordered By: Sesar Ambrosio Discharge Data Discharge Date/Time-TO BE ENTERED AT DEPARTURE: 06/01/24 15:03 DS: Summary Time Spent with Patient providing and/or coordinating discharge services: Greater than 30 minutes Status at Discharge Functional status at discharge: uses cane/walker Overall status at discharge: patient is back to baseline Mental Status: mental status grossly normal Speech and Movement: speech and movement normal Mood: congruent mood Affect: normal affect Quality:SDOH Health Related Social Needs: No Data to Display Exam Narrative Exam Narrative: General: Alert, oriented. NAD HEENT: conj clear, no icterus, MMM Lungs: normal effort, slight rales left base, otherwise clear Heart: Bradycardic rate with normal rhythm. No appreciable murmur or gallop. Abdomen: +BS, soft, NT/ND Extremities: no c/c/e Neuro: Cranial nerves II to XII grossly intact, no focalizing motor deficits. Increased tone but no cogwheel rigidity to exam. No resting tremor. Psych: Flattened affect with normal mood. Recent memory deficit notable Psych Mental Status: mental status grossly normal Speech and Movement: speech and movement normal Mood: congruent mood Affect: normal affect DS: Data Vitals/I&O Vitals and I&O: Vital Signs Temperature 36.8 C 06/01/24 11:30 Temperature Source Tympanic 06/01/24 11:30 Pulse 47 L 06/01/24 11:30 Pulse 49 L 05/31/24 12:03 Respiratory Rate 17 06/01/24 11:30 Respiratory Effort Normal 05/31/24 01:10 Respiratory Depth Normal 05/31/24 01:10 Respiratory Pattern Normal 05/31/24 01:10 Blood Pressure 120/64 06/01/24 11:30 Blood Pressure Mean 106 05/31/24 12:02 Blood Pressure Position Supine 05/31/24 01:10 Pulse Oximetry 96 06/01/24 11:30 Oxygen Delivery Method Room Air 06/01/24 11:30 Oxygen Flow Rate 0 06/01/24 11:30 Pain Level 0 06/01/24 11:30 Comment Notifying RN 05/31/24 15:27 Intake & Output 05/31/24 05/31/24 06/01/24 11:59 23:59 11:59 Intake Total 380 / 730 350 / 730 340 / 340 Output Total 625 / 625 Balance -245 / 105 350 / 105 340 / 340 Weight 65.5 kg 65.4 kg Intake: IV 180 / 530 350 / 530 100 / 100 Oral 200 / 200 240 / 240 Output: Urine 625 / 625 Other: Urine Color Yellow Yellow Urine Appearance Clear Data Completed and Pending Labs on day of discharge: Labs from last 24 hours 06/01/24 08:01 MRSA (TEM-PCR) Negative Preliminary micro results at discharge 05/30/24 20:30 Blood Culture - Preliminary Blood NO GROWTH 24 HOURS 05/30/24 20:07 Blood Culture - Preliminary Blood NO GROWTH 24 HOURS PFSH All Active Problems (Updated 06/02/24 @ 00:02 by WEN MEI) Constipation (Acute) Cholelithiasis without cholecystitis (Acute) Glaucoma (Chronic) Parkinson's disease (Chronic) Delirium (Acute) Social History (System 05/31/24 @ 07:45 by Ester Briceno) Smoking/Tobacco Use Status: Never Smoking risk assessment performed?: Yes Alcohol Intake: never Substance use type: does not use Time Spent with Patient Time Spent with Patient: <45 minutes Time was spent: preparing to see the patient(eg.review tests), obtaining and/or reviewing separately otained hiistory, ordering medications,tests, procedures, referring, communicating with other health long term care social worker, indepentently interpreting results, counseling the patient and care coordination
--- NOTE | 2024-06-01 11:51 | NUR.NOTE ---
Nursing Note: to food service kitchen supervisor around 1500.
--- NOTE | 2024-06-01 12:16 | PDOC.CMDIS ---
Date of service: 06/01/24 Time of Service: 12:16 LACE Index Scoring Tool Questions: Length of Stay (in days): 3 Was the patient admitted via the E.D.?: Yes E.D. Visits: 1 Answers: Total Score: 7 Risk of Readmission: Low Risk Care Management Discharge Plan Reason for Hospitalization: Delirium, Pneumonia Discharge Plan: [place] is discharged home via private vehicle with family. He will follow up with his community providers and discharge plan of care. No new services are ordered at the time of his discharge. Patient/Family Education Needs: Review discharge instructions and plan to follow up after discharge. Discuss ask me three. SDOH Health Related Social Needs: No Data to Display
[2024-06-01] MEDS: cefTRIAXone 2 GM/50 ML BAG IVPB (12:58)
--- NOTE | 2024-06-01 13:20 | PT.INTREAT ---
PT Notes Visit Reasons: Acute delirium, Left lower lobe pneumonia, Kimberly Inpatient Physical Therapy Treatment Note [facility] Date:06/01/2024 PRECAUTIONS:telemetry SUBJECTIVE: Pt reports he may be going home today OBJECTIVE: []? PAIN: denied VITALS: ?monitored via telemetry throughout with HR remaining 52-68 Therapeutic Activities ([id number][]): Direct one-on-one instruction in dynamic activities to improve functional performance. ? BED MOBILITY/TRANSFERS? Rolling L/R:independent Supine-sit: independent? Sit-supine: independent? Sit-stand: independent? Stand-sit: independent ? Bed-Chair: supervision with SPC? Chair-bed: supervision with SPC Provided skilled cues and instruction on performance and technique throughout. ? Facilitated safe and correct performance of level surface ambulation covering a distance of 200 feetx1, 300feet x 1 using SPC with 1 seaated rest. supervision Did not report of any increased pain. Denied headache, chest pain, and lightheadedness throughout activity. Minimal verbal cueing provided for AD management, directional changes, and posture. Pt intermittently carrying SPC with noted wider MARKEL and reduced step length at those times ASSESSMENT:?Pt demonstrates stability with ambulation with SPC. Pt with poor short term memory noted. pt instructed to utilize gait for improved stability especially outdoors PLAN:Cont PT per POC until D/C to home TREATMENT CODE/TIME: 00188/ [id number] DISCHARGE RECOMMENDATION: HHPT
== END 2024-06-01 15:03 | disposition home or self-care (01) ==
LOC: ER 05-31 00:17 → ICU 05-31 00:53 → MS 05-31 14:13
PROVIDERS: Admitting Provider Family Medicine; Emergency Provider Emergency Medicine; Responsible Provider Family Medicine; Visit Provider Family Medicine
DX: R41.0 Disorientation, unspecified (principal); E87.6 Hypokalemia; J18.9 Pneumonia, unspecified organism; G20.B1 Parkinson's disease with dyskinesia, without mention of fluctuations; H40.89 Other specified glaucoma; K80.20 Calculus of gallbladder without cholecystitis without obstruction; K59.01 Slow transit constipation; Z79.899 Other long term (current) drug therapy
CPT/HCPCS: 00123; 36415; 80053; 80307; 85027; 87040; 87637; 87641; 93005; 96365; 96366; 96367; 96372; 97112; 97161; 97530; 99285; J1650; 70140; 70450; 70551; 71045; 80202; 80320; 81003; 81015; 82140; 83735; 84443; 84484; 85025; 85610; 93010; 93306; 99223; 99232; 99239; G0378; J0692; J0696; J3370